=== PATIENT | male | born 1985 ===

== ENCOUNTER 2024-07-05 22:53 | Emergency (ER) | payer BC, SELFPAY ==
[2024-07-05 22:54] VITALS: BP 145/90
[2024-07-05 23:20] LABS: % Basophils 0.7 % (0-2); % Eosinophils 2.4 % (0-6); % Immature Granulocytes 0.2 % (0-0.5); % Lymphocytes 27.5 % (20.5-51.1); % Monocytes 7.6 % (1.7-9.3); % Neutrophils 61.6 % (42.2-75.2); Absolute Eosinophils 0.1 10^3/uL (0-0.7); Absolute Lymphocytes 1.5 10^3/uL (1.2-3.4); Absolute Monocytes 0.4 10^3/uL (0.1-0.6); Absolute Neutrophils 3.4 10^3/uL (1.4-6.5); Hematocrit 44.2 % (39.0-52.0); Hemoglobin 14.7 g/dL (13.0-18.0); Mean Corp Hgb Conc. 33.3 g/dL (33.0-37.0); Mean Corpuscular Hgb 28.1 pg (27.0-31.0); Mean Corpuscular Volume 84.5 fL (80.0-94.0); Mean Platelet Volume 9.9 fL (7.4-10.4); Nucleated Red Blood Cells % 0 % (-); Platelet Count 198 10^3/uL (130-400); Red Blood Cell Count 5.23 10^6/uL (4.70-6.10); Red Cell Dist. Width 12.6 % (11.5-14.5); White Blood Cell Count 5.5 10^3/uL (4.8-10.8)
[2024-07-05 23:43] LABS: ALT (SGPT) 22 U/L (0-50); AST (SGOT) 27 U/L (17-59); Albumin 4.1 g/dl (3.5-5.0); Alkaline Phosphatase 51 U/L (38-126); Blood Urea Nitrogen 14 mg/dl (9-20); Calcium 9.9 mg/dl (8.4-10.2); Carbon Dioxide 27 mmol/L (22-30); Chloride 107 mmol/L (98-107); Glucose 107 mg/dl (70-99); Lipase 95 U/L (23-300); Sodium 141 mmol/L (135-145); Total Bilirubin 0.5 mg/dl (0.2-1.3); Total Protein 6.7 g/dl (6.3-8.2); eGFR > 60.00
[2024-07-06 02:10] VITALS: BMI 29.9
[2024-07-06 02:12] VITALS: BP 125/83
--- NOTE | 2024-07-06 03:11 | ED.GENMED ---
History of Present Illness
General
Chief Complaint: Abdominal Symptoms
Source: patient
Exam Limitations: none
Time Seen by Provider: 07/06/24 02:15
Nursing documentation reviewed up to this point in time: agreed with
History of Present Illness
History of Present Illness:
Pleasant 38-year-old male that presents with acute on chronic abdominal pain. Patient works for [employer] and since January, he has been working much more intensely. He states the busy season is from January and proceeds for the next few months. He
states during that time he lost approximately 40 pounds. He states that he was not eating. He was seen by Dr. Morris, drafter mechanical and diagnosed with erosive gastritis. He was placed on Protonix and Pepcid AC. Patient states that he has had
return of symptoms several times since that initial visit. Patient denies any new pain. States that he does smoke marijuana on occasion but does not feel that this is related. He states that ever since seeing gastroenterology he has been eating
normally but he has not put back the weight. Tonight he had an episode of this gastritis type pain and came to the emergency department. At time, patient was not in any distress. He stated that all pain had resolved. His is a nurse and he
states that she feels that this is due to anxiety. He does admit to being anxious.
Review of Systems
Review of Systems
Allergies reviewed?: Yes
Constitutional: Denies fever, fatigue, sleep disturbance, night sweats or chills
ABD/GI: Reports abdominal pain; Denies nausea, vomiting, diarrhea, constipated, bloody stools, black stools, anorexia or pain
Psychiatric: Reports anxiety
Phy Exam
General Physical Exam
General Presentation: well appearing and no apparent distress
General Skin: warm and dry
General Habitus: normal
General Mental: alert
General Hydration: appears well hydrated
ENT Exam
ENT Exam: EOMI, pharynx normal, neck supple and normocephalic
Eye Exam
Eye Exam: PERRL, cornea clear and conjunctiva normal
Cardiovascular Exam
Cardiovascular Exam: regular rate/rhythm, no edema, no murmur and normal peripheral pulses
Pulmonary Exam
Pulmonary Exam: lungs clear, no respiratory distress, no rales, no crackles, no rhonchi, no stridor, no wheezing and no cough
Gastrointestinal Exam
Gastrointestinal Exam: normal bowel sounds, non tender, soft, no organomegaly, no pulsatile mass, non distended and other (No pain to deep or superficial palpation. Normal bowel sounds x 4 quadrants.)
Neurological Exam
Neurological Exam: alert, oriented x3, no motor deficits and speech normal
Musculoskeletal Exam
Musculoskeletal Exam: full ROM and no edema
Skin Exam
Skin Exam: normal color, warm/dry, no rash and no petechia
Psychiatric Exam
Psychiatric Exam: normal mood/affect
Course
Orders/Labs/Results
Orders:
Orders
07/05/24 23:15
Complete Blood Count/With Diff Urgent
Comprehensive Metabolic Panel Urgent
Lipase Urgent
07/06/24 03:11
CR Abdomen - 1 View Urgent
Comment:
Reason For Exam: generalized abd pain
Abnormal Lab Results
07/05/24
23:15
Glucose 107 H mg/dl
(70-99)
07/05/24 23:15
07/05/24 23:15
Vital Signs
Initial and Last Documented VS:
Initial Vital Signs
Temp Pulse Resp BP Pulse Ox
98.1 F 59 16 145/90 100
07/05/24 22:54 07/05/24 22:54 07/05/24 22:54 07/05/24 22:54 07/05/24 22:54
Last Documented Vital Signs
Temp Pulse Resp BP Pulse Ox
98.1 F 70 18 125/83 98
07/05/24 22:54 07/06/24 02:12 07/06/24 02:12 07/06/24 02:12 07/06/24 02:12
*Critical Care Note
Total Time (30-74mins, 75-104mins- exclusive of procedures): Not Applicable
ED Attending Note
-
Portions of this chart may have been created with voice recognition software.� Occasional wrong word or��sound alike� substitutions may have occurred due to the inherent limitations of voice recognition software.
Discharge Plan
Departure
Patient Disposition: Home (Routine Discharge)
Date of Disposition: 07/06/24
Time of Disposition: 04:33
Patient with high blood pressure during this ER visit?: No
Condition: Good
Discharge Problem:
Abdominal pain, Anxiety
Instructions: Clear Liquid Diet, Abdominal Pain, BLOOD PRESSURE
Prescriptions:
New
lorazepam [Ativan] 0.5 mg tablet
0.5 mg PO BID PRN (Reason: anxiety) Qty: 7 0RF
Referrals:
Shin Morris MD [Non-Admitting Privileges] - Next open appointment
Activity Restrictions/Additional Instructions:
Thank You for choosing [facility].
It was a pleasure meeting you and taking part in your care. We hope for your continued healing and wellness.
Please read discharge instructions in their entirety. However, they are for general education and may not describe your exact diagnosis at discharge. Information on your ER visit and medical conditions were discussed with you along with appropriate
follow up information...
If indicated, please take your medications as instructed and indicated on discharge paperwork.
Please schedule a follow up appointment as directed. Call to schedule an appointment
Please return to the emergency department with ANY change in, persisting, or worsening of symptoms. If any of your symptoms do not improve, or persist, or become more severe within 6-12 hours, please return to the emergency department for further
care.
Please return to the emergency department if you develop a headache, neck pain/stiffness, fever greater than 100.4F, chest pain, shortness of breath, persistent nausea, vomiting, slurred speech, difficulty walking, numbness/tingling, weakness, signs
of infection or any other symptoms that are worrisome to you.
If you have any questions or concerns please do not hesitate to call the Hospital at or E-mail me directly at [email or web address]
Interventions
Interventions:
*Risk Screen - Suicide Last Done: 07/05/24 22:57
*General Assessment Last Done: 07/05/24 22:57
*Neglect/Abuse Screening Last Done: 07/05/24 22:57
*ED- Fall Risk Assessment Last Done: 07/06/24 02:11
*ED COVID-19 Vaccine History Last Done: 07/06/24 02:11
XE-Azpwyt-Kvfxekmahb Assessment Last Done: 07/06/24 02:13
Discharge Date and Time
Print Language: NIUEAN
[2024-07-06 04:46] VITALS: BP 116/80
== END 2024-07-06 04:50 | disposition home or self-care (01) ==
LOC: EMR 22:53
PROVIDERS: Emergency Medicine; EMERGENCY PHYSICIAN Student in an Organized Health Care Education/Training Program; FAMILY PHYSICIAN Internal Medicine
DX: R10.84 Generalized abdominal pain (principal); F41.9 Anxiety disorder, unspecified; K29.60 Other gastritis without bleeding; G89.29 Other chronic pain; Z88.1 Allergy status to other antibiotic agents; Z88.0 Allergy status to penicillin
CPT/HCPCS: 99283; 74018; 80053; 83690; 85025

== ENCOUNTER 2024-10-06 03:15 | Emergency (ER) | payer BC, SELFPAY ==
[2024-10-06 03:19] VITALS: BP 148/91
[2024-10-06 03:43] VITALS: BMI 28.9
--- NOTE | 2024-10-06 04:10 | ED.GENMED ---
History of Present Illness
General
Chief Complaint: Abdominal Symptoms
Source: patient
Exam Limitations: none
Time Seen by Provider: 10/06/24 03:51
Nursing documentation reviewed up to this point in time: agreed with
History of Present Illness
History of Present Illness:
39-year-old male presents emergency department due to nausea and vomiting that began at 1:30 AM. He has had similar episodes in the past 6 to 12 months. He was seen at [facility] and diagnosed with gastritis he was treated with Pepcid. He had
endoscopy that showed gastritis. He smokes marijuana twice a day for his symptoms.
Past History
Past History
ED Past Medical History: Other (Gastritis)
ED Past Surgical History: Other (Ear tubes)
Social History
Tobacco: Non-smoker
Alcohol: None
Drug: Marijuana
Personal:
Living: with family
Review of Systems
Review of Systems
Allergies reviewed?: Yes
All Other Systems: Not applicable
Constitutional: Reports no symptoms
EENT: Reports no symptoms
Respiratory: Reports no symptoms
Cardiac: Reports no symptoms
ABD/GI: Reports abdominal pain and vomiting
: Reports no symptoms
Musculoskeletal: Reports no symptoms
Skin: Reports no symptoms
Neurological: Reports no symptoms
Endocrine: Reports no symptoms
Hematologic/Lymphatic: Reports no symptoms
Psychiatric: Reports no symptoms
Phy Exam
Physical Exam
Physical Exam:
Physical Exam
General: Appears uncomfortable
Neck: supple. no meningeal signs. normal posterior pharynx
Heart: s1/s2 regular rate and rhythm, no murmur. equal radial
pulses.
HEENT: Pupils equal round reactive to light, EOMI
Lungs: no acute respiratory distress. clear bilaterally
Abdomen: normal bowel sounds. not tender. no CVAT
Neuro: alert and oriented. no focal neurological deficits cranial nerves II through XII intact
Skin: no rash
Psychiatric: well kept. interactive and cooperative
Extremities: no edema. no calf tenderness. negative homans. good distal pulses
Course
Orders/Labs/Results
Orders:
Orders
10/06/24
Electrocardiogram (*1) Stat
Reason for Study: Chest Pain
Comment: DONE
10/06/24 04:09
Electrocardiogram (*1) Urgent
EKG- Treatment ONCE
IV Insert/Care/Rem.- Treatment PRN
0.9% Sodium Chloride 1000 ml [Nss] 1,000 ml IV BOLUS
10/06/24 04:24
Haloperidol Lactate [Haldol] 1 mg IV NOW STA
10/06/24 04:37
Complete Blood Count/With Diff Urgent
Comprehensive Metabolic Panel Urgent
Lipase Urgent
10/06/24 04:50
Diphenhydramine [Benadryl] 25 mg IV NOW STA
10/06/24 04:51
Diphenhydramine [Benadryl] 50 mg .ROUTE .STK-MED ONE
10/06/24 06:00
Urine Reflex Culture from UA [Urinalysis Reflex To Culture] Urgent
Date Specimen was Collected: 10/06/24
Time Specimen was Collected: 05:58
Abnormal Lab Results
10/06/24
04:37
WBC 11.4 H 10^3/uL
(4.8-10.8)
MPV 10.5 H fL
(7.4-10.4)
Abs Immat Gran (auto) 0.1 H 10^3/uL
(0-0.05)
Absolute Neuts (auto) 9.5 H 10^3/uL
(1.4-6.5)
Absolute Lymphs (auto) 1.1 L 10^3/uL
(1.2-3.4)
Neutrophils % 83.3 H %
(42.2-75.2)
Lymphocytes % 9.9 L %
(20.5-51.1)
Carbon Dioxide 19 L mmol/L
(22-30)
Glucose 124 H mg/dl
(70-99)
10/06/24 04:37
10/06/24 04:37
Vital Signs
Initial and Last Documented VS:
Initial Vital Signs
Temp Pulse Resp BP Pulse Ox
97.9 F 70 24 148/91 100
10/06/24 03:19 10/06/24 03:19 10/06/24 03:19 10/06/24 03:19 10/06/24 03:19
Last Documented Vital Signs
Temp Pulse Resp BP Pulse Ox
97.9 F 87 20 148/91 98
10/06/24 03:19 10/06/24 06:00 10/06/24 06:04 10/06/24 03:19 10/06/24 06:04
MDM/Problems Addressed
Differential Diagnosis Includes:
Cholecystitis, gastritis, cannabis hyperemesis
MDM/Problems Addressed:
31-year-old male with nausea and vomiting, likely due to cannabis hyperemesis. Improved after IV Benadryl and Haldol.
*Pulse Oximetry
SaO2: 100
Oxygen Mode of Delivery: Room air
Patient hypoxic: no
*EKG
Interpreted by ED Provider?: Yes
EKG Intrepretation Date: 10/06/24
EKG Intrepretation Time: 04:30
Interpretation: normal
Comparison EKG: no comparison EKG present
Heart Rate: 62
Rate: normal
Rhythm: sinus
[place]: normal axis
Interval: normal interval
QRS Pattern: normal QRS
Ischemia: no ischemia
*An/Syq 13 Nav/C2 Operator Interpretation
Rate: normal
Interpretation: normal
Heart Rate: 60
Rhythm: sinus
*Critical Care Note
Total Time (30-74mins, 75-104mins- exclusive of procedures): Not Applicable
Data Reviewed
Further Testing Considered But Not Given:
ct a/p not indicated
ED Attending Note
-
Portions of this chart may have been created with voice recognition software.� Occasional wrong word or��sound alike� substitutions may have occurred due to the inherent limitations of voice recognition software.
Discharge Plan
Departure
Patient Disposition: Home (Routine Discharge)
Date of Disposition: 10/06/24
Time of Disposition: 06:07
Patient with high blood pressure during this ER visit?: Yes
Condition: Good
Discharge Problem:
Vomiting
Instructions: Nausea and Vomiting, Adult (DC), Cannabis hyperemesis syndrome, Abdominal Pain, BLOOD PRESSURE
Prescriptions:
New
ondansetron 4 mg tablet,disintegrating
4 mg PO Q8H PRN (Reason: nausea and vomiting) 4 Days Qty: 7 0RF
No Action
lorazepam [Ativan] 0.5 mg tablet
0.5 mg PO BID PRN (Reason: anxiety) Qty: 7 0RF
Referrals:
Nestor Workman MD [Family Provider, Internal Medicine] - Call in 1-3 days for appt
Interventions
Interventions:
*Risk Screen - Suicide Last Done: 10/06/24 03:19
*General Assessment Last Done: 10/06/24 03:44
*Neglect/Abuse Screening Last Done: 10/06/24 03:19
*ED- Fall Risk Assessment Last Done: 10/06/24 03:19
*ED COVID-19 Vaccine History Last Done: 10/06/24 03:19
DQ-Gqghdz-Gajjsjscbf Assessment Last Done: 10/06/24 03:44
Discharge Date and Time
Print Language: INDONESIAN
[2024-10-06] MEDS: HALDOL 1 MG IV (04:34)
[2024-10-06] MEDS: NSS 1000 IV (04:34)
[2024-10-06 04:47] LABS: Hematocrit 45.0 % (39.0-52.0); Hemoglobin 15.6 g/dL (13.0-18.0); Mean Corp Hgb Conc. 34.7 g/dL (33.0-37.0); Mean Corpuscular Volume 81.7 fL (80.0-94.0); Nucleated Red Blood Cells % 0 % (-); Platelet Count 220 10^3/uL (130-400); Red Cell Dist. Width 12.7 % (11.5-14.5)
[2024-10-06] MEDS: BENADRYL 25 MG IV (04:52)
[2024-10-06 05:12] LABS: ALT (SGPT) 20 U/L (0-50); AST (SGOT) 24 U/L (17-59); Albumin 4.9 g/dl (3.5-5.0); Alkaline Phosphatase 59 U/L (38-126); Blood Urea Nitrogen 20 mg/dl (9-20); Calcium 9.3 mg/dl (8.4-10.2); Carbon Dioxide 19 mmol/L (22-30); Chloride 107 mmol/L (98-107); Estimated Creatinine Clearance > 125 ml/min; Glucose 124 mg/dl (70-99); Lipase 90 U/L (23-300); Potassium 3.8 mmol/L (3.5-5.1); Sodium 139 mmol/L (135-145); Total Protein 7.4 g/dl (6.3-8.2); eGFR > 60.00
[2024-10-06 06:08] LABS: Urine Character Clear (Clear)
[2024-10-06 06:24] VITALS: BP 134/86
== END 2024-10-06 06:26 | disposition home or self-care (01) ==
LOC: EMR 03:15
PROVIDERS: EMERGENCY PHYSICIAN Emergency Medicine; FAMILY PHYSICIAN Internal Medicine
DX: R11.2 Nausea with vomiting, unspecified (principal); R10.9 Unspecified abdominal pain; F12.90 Cannabis use, unspecified, uncomplicated; Z87.19 Personal history of other diseases of the digestive system; Z88.1 Allergy status to other antibiotic agents; Z88.0 Allergy status to penicillin
CPT/HCPCS: 99284; 96374; 96375; 96361; 80053; 81003; 83690; 85025; 93005